=== PATIENT | female | born 1990 | race Caucasian/White ===

== ENCOUNTER 2016-11-18 18:39 | Emergency (ER) | payer OTHER ==
--- NOTE | ~2016-11-18 | EKG ---
PATIENT: DAV MARIA UNIT #: [id number] Ventricular Rate: 75 BPM Atrial Rate: 75 BPM P-R Interval: 122 ms QRS Duration: 90 ms Q-T Interval: 372 ms QTC Calculation(Bezet): 415 ms P [place]: 17 degrees Calculated R [place]: 15 degrees Calculated T [place]: 27 degrees Diagnosis Line: Poor data quality, interpretation may be Diagnosis Line: adversely affected Diagnosis Line: Normal sinus rhythm Diagnosis Line: Normal ECG Diagnosis Line: No previous ECGs available Diagnosis Line: Confirmed by TRISTA PIRES MD ([id number]) on Diagnosis Line: 11/23/2016 10:54:05 PM INTERPRETING MD: [email or web address]
--- NOTE | ~2016-11-18 | CR63 ---
[facility] A Service of [facility] RADIOLOGY TEXT RESULTS PATIENT: DAV MARIA LOCATION: SED : [birth year] UNIT #: [id number] AGE: [address]: NOE BROCK SEX: F ORDER DR: [id number] [address] [address] [id number] E MR#: [id number] Acc #: [id number] NAME: DAV MARIA : 1990 SEX: F STUDY DATE/TIME: 11/18/2016 19:07 UNIT: SED ROOM: STUDY DESCRIPTION: CR Chest 2 View Attending Physician: Noe Brock Aprn Ordering Physician: Noe Brock Aprn Primary Care Physician: Airam Barron M.D. MEDICAL IMAGING REPORT This report is preliminary unless electronic signature is present. EXAM PA and lateral chest HISTORY Left-side chest pain and shortness of air and cough today. FINDINGS PA and lateral examination of the chest upright shows a good expansion of the parenchyma with a normal distribution of the pulmonary vascularity. There is no indication of congestion, effusion, infiltrate, tumor, or nodular density. The pleural reflections and diaphragmatic contours are normal. The cardiac silhouette and mediastinal anatomy is within normal limits. IMPRESSION Normal chest. Dictated by... Jamey Sarmiento M.D. THIS IS AN ELECTRONICALLY VERIFIED REPORT Jamey Sarmiento M.D. at 11/19/2016 11:23 PM KARIME/anayeli TD: 11/19/2016 00:57 JOB #: [id number] MEDICAL IMAGING REPORT Page 1 of 1
[~2016-11-18 18:39] MED LIST: ALBUTEROL17 GM INH; AMOXICILLIN PO; AMOXICILLIN500 M1 PO; AMOXICILLIN875 MG PO; AUGMENTIN875 MG PO; BACTRIM DS TABL1 TA1; BENZONATATE PO; BROMPHED DM PO; DELTASONE20 MG PO; FLEXERIL10 M1 PO; LORTAB 5/500 TA1 TA2 PO; MOTRIN600 M2 PO; NO MEDICATIONS; NORCO1 TAB 10/3 PO; PENICILLIN V P500 MG PO; PREDNISONE PO; PROAIR; PROVENTIL INH0.5 ML; SPIRIVA18 MCG PO; TYLENOL #3 PO; VOLTAREN75 MG PO
[2016-11-18] MEDS ORDERED: NO MEDICATIONS (18:49)
== END 2016-11-18 21:05 | disposition home or self-care (01) ==
LOC: SED 18:39
DX: J06.9 Acute upper respiratory infection, unspecified (principal); J45.909 Unspecified asthma, uncomplicated; F17.210 Nicotine dependence, cigarettes, uncomplicated
CPT/HCPCS: 71020; 87651; 93005; 99284